=== PATIENT | male | born 1955 | race Caucasian/White ===

== ENCOUNTER → 2022-07-15 | Outpatient (CLI) | payer MEDICARE, OTHER ==
--- NOTE | 2022-07-15 14:34 | US ---
EXAMINATION TYPE: US abdomen complete DATE OF EXAM: 07/15/2022 COMPARISON: NONE CLINICAL INDICATION: Male, 67 years old with history of R10.11 RIGHT UPPER QUADRANT PAIN; epigastric pain on and off for 6 months TECHNIQUE: Multiple sonographic images of the abdomen are obtained. FINDINGS: EXAM MEASUREMENTS: Liver Length: 15.3 cm Gallbladder Wall: 0.3 cm CBD: 0.5 cm Spleen: 10.2 cm Right Kidney: 10.0 x 4.1 x 5.1 cm Left Kidney: 11.6 x 4.0 x 5.5 cm Pancreas: wnl Liver: 1.7 x 1.4 x 1.6cm septated cyst with through transmission. Diffuse increased echogenicity. Gallbladder: wnl Evidence for sonographic Parekh's sign: no CBD: wnl Spleen: wnl Right Kidney: wnl Left Kidney: wnl Upper IVC: wnl Abd Aorta: wnl IMPRESSION: 1. At least moderate hepatic steatosis. Correlate with LFTs, lipid profile, and patient risk factors. 2. A 1.7 cm mildly complex cyst of the right liver lobe. Six-month follow-up ultrasound to reassess. 3. No gallstones or biliary ductal dilatation.
== END | disposition home or self-care (01) ==
LOC: RADUSWWP 06:41
PROVIDERS: ATTEND Internal Medicine Gastroenterology
DX: K76.0 Fatty (change of) liver, not elsewhere classified (principal); K76.89 Other specified diseases of liver
CPT/HCPCS: 76700

== ENCOUNTER 2022-07-25 12:18 | Day surgery (SDC) | payer MEDICARE, OTHER ==
[~2022-07-25 12:18] MED LIST: LACTATED RINGERS 1,000 ML IV SCH
[2022-07-25] MEDS ORDERED: LACTATED RINGERS 1,000 ML IV ONE (12:39)
[2022-07-25 12:47] VITALS: RESP 16; TEMP 98
[2022-07-25] MEDS ORDERED: LIDOCAINE 2% INJ 20 MG/ML (2 ML VIAL) ONE (13:16)
[2022-07-25] MEDS ORDERED: PROPOFOL 10 MG/ML 20 ML VIAL IV ONE (13:16)
--- NOTE | 2022-07-25 13:29 | P.PCN ---
Date of Procedure: 07/25/22 Procedure(s) Performed: BRIEF HISTORY: Patient is a 67-year-old, pleasant, white female scheduled for an upper endoscopy as a part of evaluation of epigastric and right upper quadrant abdominal pain for the last 3 months duration. A pleasant 40 satiety but denies any nausea vomiting. He lost about 10 pounds since onset of the symptoms. No help with omeprazole for 2 weeks.. PROCEDURE PERFORMED: Esophagogastroduodenoscopy with biopsy. PREOPERATIVE DIAGNOSIS: Epigastric and right upper quadrant abdominal pain. IV sedation per anesthesia. PROCEDURE: After informed consent was obtained, the patient was brought into the endoscopy unit. IV sedation was administered by Anesthesia under continuous monitoring. Initially the Olympus GIF-140 video endoscope was inserted into the mouth. Esophagus intubated without any difficulty. It was gradually advanced into the stomach and duodenum and carefully examined. The bulb and the second part of the duodenum appeared normal. The scope at this time was withdrawn to the stomach, adequately insufflated with air, and upon careful examination, mucosa of the antrum, had multiple scattered erosions consistent with gastritis and biopsies were done from this area. No ulcerations noted. Because of the body, cardia and the fundus appeared normal. The scope was then withdrawn into the esophagus. The GE junction was located at 39 cm from the incisors. Small sliding type hiatal hernia noted. The esophagus appeared normal. There were no erosions or ulcerations seen, biopsies were done from the distal esophagus and the patient tolerated the procedure well. IMPRESSION: 1. Antral erosive gastritis. 2. Small hiatal hernia but no evidence of esophagitis or Hutson's esophagus.. RECOMMENDATIONS: The findings of this examination were discussed with the patient as well as his family. He was advised to avoid NSAIDs. Follow with the biopsy results. Continue with Prevacid 30 mg daily and follow antireflux measures.
[2022-07-25 13:52] VITALS: BP 147/75; PULSE 53
== END 2022-07-25 14:05 | disposition home or self-care (01) ==
LOC: ORWHC2ENDO 12:18
PROVIDERS: ATTEND Internal Medicine Gastroenterology
DX: K29.50 Unspecified chronic gastritis without bleeding (principal); K20.90 Esophagitis, unspecified without bleeding; K44.9 Diaphragmatic hernia without obstruction or gangrene; E78.5 Hyperlipidemia, unspecified; I48.91 Unspecified atrial fibrillation; J45.909 Unspecified asthma, uncomplicated; Z79.899 Other long term (current) drug therapy; Z91.030 Bee allergy status
CPT/HCPCS: 88305; 43239; J2704; J2001

== ENCOUNTER → 2023-01-20 | Outpatient (CLI) | payer MEDICARE, OTHER ==
--- NOTE | 2023-01-20 08:41 | US ---
EXAMINATION TYPE: US liver DATE OF EXAM: 01/20/2023 COMPARISON: 07/15/2022 CLINICAL INDICATION: Male, 67 years old with history of K76.89 OTHER SPECIFIED DISEASES OF LIVER; Hx Liver Cyst; New onset uncontrolled hypertension TECHNIQUE: Multiple sonographic images of the right upper quadrant are obtained. FINDINGS: EXAM MEASUREMENTS: Liver Length: 13.9 cm cyst = 1.9 x 1.5 x 1.1 cm Gallbladder Wall: 0.2 cm CBD: 0.2 cm Right Kidney: 10.4 x 4.3 x 4.8 cm Pancreas: wnl Liver: wnl Gallbladder: wnl Evidence for sonographic Parekh's sign: no CBD: wnl Right Kidney: wnl IMPRESSION: 1. No evidence for acute process. 2. Complex cyst in the liver appears fractionally larger. Consider additional short-term follow-up.
== END | disposition home or self-care (01) ==
LOC: RADUSWWP 06:53
PROVIDERS: ATTEND Internal Medicine Gastroenterology
DX: K76.89 Other specified diseases of liver (principal)
CPT/HCPCS: 76705

== ENCOUNTER → 2023-07-21 | Outpatient (CLI) | payer MEDICARE, OTHER ==
--- NOTE | 2023-07-21 08:21 | US ---
EXAMINATION TYPE: US liver DATE OF EXAM: 07/21/2023 COMPARISON: 01/20/2023 CLINICAL INDICATION: Male, 68 years old with history of K76.89 OTHER SPECIFIED DISEASES OF LIVER; fol low up liver cyst TECHNIQUE: Multiple sonographic images of the right upper quadrant are obtained. FINDINGS: EXAM MEASUREMENTS: Liver Length: 11.7 cm Gallbladder Wall: 0.2 cm CBD: 0.3 cm Right Kidney: 9.6x4.9x4.9 cm CRM COORDINATOR NOTES: Pancreas: Tail obscured by overlying bowel gas Liver: increased echogenicity, septated cystic area measures 1.8x1.2x1.2cm , no suspicious solid mas ses. Gallbladder: wnl Evidence for sonographic Parekh's sign: No CBD: wnl Right Kidney: wnl exam slightly limited by bowel IMPRESSION: 1. Hepatic cyst with thin septations unchanged from prior exam 01/20/2023 2. 2. Diverticulosis.
== END | disposition home or self-care (01) ==
LOC: RADUSWWP 06:53
PROVIDERS: ATTEND Internal Medicine Gastroenterology
DX: K76.89 Other specified diseases of liver (principal); K76.0 Fatty (change of) liver, not elsewhere classified; K57.90 Diverticulosis of intestine, part unspecified, without perforation or abscess without bleeding
CPT/HCPCS: 76705

== ENCOUNTER 2024-02-10 06:54 | Day surgery (SDC) | payer MEDICARE, OTHER ==
[2024-02-05 15:15] VITALS: BMI 28.5
[2024-02-10] MEDS: IV FLUID CONTINUATION 1,000 ML IV ONE (07:11)
[2024-02-10 07:31] VITALS: RESP 16; TEMP 97
[2024-02-10] MEDS ORDERED: PROPOFOL 10 MG/ML 20 ML VIAL IV ONE (07:31)
[2024-02-10] MEDS ORDERED: LIDOCAINE 1% INJ 10MG/ML (20 ML MDV) ONE (07:31)
[2024-02-10 07:42] LABS: HCT 47.2 % (39.0-53.0); HGB 15.6 gm/dL (13.0-17.5); MCH 29.9 pg (25.0-35.0); MCV 90.6 fL (80.0-100.0); Mean Platelet Volume 6.8; Platelet Count 274 k/uL (150-450); RBC 5.22 m/uL (4.30-5.90); RDW 12.4 % (11.5-15.5); WBC 6.6 k/uL (3.8-10.6)
--- NOTE | 2024-02-10 08:00 | P.PCN ---
Date of Procedure: 02/10/24 Procedure(s) Performed: Brief history: Patient is a pleasant 68-year-old white female scheduled for an elective upper endoscopy as well as colonoscopy as a part of evaluation of GERD and screening for colon cancer/positive: Procedure performed: Esophagogastroduodenoscopy with biopsy Colonoscopy with piecemeal snare polypectomy and Endo Clip placement Preoperative diagnosis: GERD Screening for colon cancer/positive Cologuard Anesthesia: MAC Procedure: After informed consent was obtained from the patient was brought into the endoscopy unit and IV sedation was administered by anesthesia under continuous monitoring. Initially upper endoscopy was done. The Olympus GF 160 video endoscope was inserted inserted into the mouth and esophagus intubated without any difficulty and was gradually advanced into the stomach and duodenum and carefully examined. The bulb and second part of the duodenum appeared normal. The scope was then withdrawn into the stomach adequately insufflated with air and upon careful examination the antrum and mild antral gastritis and biopsies were done from this area. Mucosa body, cardia and fundus appeared normal. The scope was then withdrawn into the esophagus. Small sliding-type hiatal hernia noted the GE junction was located at 40 cm to the incisors. It appeared regular with no erythema erosions or ulcerations. Rest of the esophagus appeared normal. Patient tolerated the procedure well. At this time the patient continued to remain sedation. Initial digital rectal examination was normal. Olympus CF 160 video colonoscope was then inserted into the rectum and gradually advanced to the cecum without any difficulty. Careful examination was performed as the scope was gradually being withdrawn. The prep was excellent. The cecum, a 3 cm flat polyp that was removed by piecemeal snare polypectomy followed by 2 Endo Clip placement. Almost complete polypectomy accomplished. Rest of the ascending colon, appeared normal. The transverse colon there was a 6 mm polyp removed by cold snare polypectomy. Rest of the transverse colon, descending colon, sigmoid colon and rectum appeared normal. Sigmoid diverticulosis. Retroflexion was performed in the rectum and no lesions were noted. Patient tolerated the procedure well. Impression: 1. Upper endoscopy revealed antral erosive gastritis and small hiatal hernia 2. Colonoscopy revealed: a) 3 cm flat cecal polyp status post piecemeal snare polypectomy followed by Endo Clip placement b) 6 mm transverse colon polyp status post snare polypectomy c) moderate sigmoid diverticulosis Recommendations: Findings of this examination were discussed with the patient as well as his family. He was advised to follow-up with the biopsy results. He will be seen in the office in in 2 weeks. Based on the biopsy results we will plan a repeat colonoscopy in 6 months to ensure complete polypectomy.
[2024-02-10 08:25] VITALS: BP 123/88; PULSE 58
== END 2024-02-10 08:42 | disposition home or self-care (01) ==
LOC: ORWHC2ENDO 06:54
PROVIDERS: ATTEND Internal Medicine Gastroenterology
DX: D12.0 Benign neoplasm of cecum (principal); D12.3 Benign neoplasm of transverse colon; K29.50 Unspecified chronic gastritis without bleeding; K44.9 Diaphragmatic hernia without obstruction or gangrene; K57.30 Diverticulosis of large intestine without perforation or abscess without bleeding; K21.9 Gastro-esophageal reflux disease without esophagitis; I10 Essential (primary) hypertension; E78.5 Hyperlipidemia, unspecified; Z79.899 Other long term (current) drug therapy; Z91.030 Bee allergy status
CPT/HCPCS: 85027; 45385; 43239; J2003; J2704; 88305

== ENCOUNTER → 2024-07-06 | Outpatient (CLI) | payer MEDICARE, OTHER ==
[2024-07-06 10:26] LABS: Basophils # (A) 0.05 X 10*3/uL (0.00-0.10); Basophils % (A) 0.7 %; Eosinophils # (A) 0.11 X 10*3/uL (0.04-0.35); Eosinophils % (A) 1.5 %; HCT 46.1 % (39.6-50.0); HGB 15.1 g/dL (13.0-17.0); Lymphocytes # (A) 2.97 X 10*3/uL (0.90-5.00); Lymphocytes % (A) 41.8 %; MCH 29.4 pg (27.0-32.0); MCHC 32.8 g/dL (32.0-37.0); MCV 89.9 FL (80.0-97.0); Mean Platelet Volume 9.5 FL (9.5-12.2); Monocytes # (A) 0.61 X 10*3/uL (0.20-1.00); Monocytes % (A) 8.6 %; NRBC Per 100 WBC 0 X 10*3/uL (0.00-0.01); Neutrophils # (A) 3.35 X 10*3/uL (1.80-7.70); Neutrophils % (A) 47.1 %; Platelet Count 277 X 10*3/uL (140-440); RBC 5.13 X 10*6/uL (4.40-5.60); RDW 13.2 % (11.5-14.5); WBC 7.11 X 10*3/uL (4.50-10.00)
[2024-07-06 10:46] LABS: ALT 19 U/L (10-49); AST 14 U/L (14-35); Albumin 4.1 g/dL (3.8-4.9); Albumin/Globulin Ratio 1.64 Ratio (1.60-3.17); Alkaline Phosphatase 67 U/L (41-126); BUN/Creat Ratio 17.78 Ratio (12.00-20.00); Calcium 8.9 mg/dL (8.7-10.3); Carbon Dioxide 23.4 mmol/L (21.6-31.8); Chloride 104 mmol/L (96-109); Chol/HDL Ratio 4.55 Ratio; Globulin 2.5 g/dL (1.6-3.3); Glucose 104 mg/dL (70-110); LDL Cholesterol,Calculated 152.3 mg/dL (0.0-131.0); Potassium 4.8 mmol/L (3.5-5.5); Prostate Specific Antigen 1.04 ng/mL (0.000-4.500); Sodium 138 mmol/L (135-145); Total Bilirubin 0.4 mg/dL (0.3-1.2); Total Protein 6.6 g/dL (6.2-8.2); VLDL Calculation 19.38 mg/dL (5.00-40.00)
== END | disposition home or self-care (01) ==
LOC: LABWHC1 07:19
PROVIDERS: ATTEND Internal Medicine
DX: I10 Essential (primary) hypertension (principal); N40.0 Benign prostatic hyperplasia without lower urinary tract symptoms
CPT/HCPCS: 36415; 80053; 80061; 83735; 84153; 84443; 85025

== ENCOUNTER → 2024-08-23 | Outpatient (CLI) | payer MEDICARE, OTHER ==
--- NOTE | 2024-08-23 11:50 | US ---
EXAMINATION TYPE: US carotid duplex BILAT DATE OF EXAM: 08/23/2024 COMPARISON: NONE CLINICAL INDICATION: Male, 69 years old with history of SCREENING Z13.6,I65.23OCCLUSION AND STENOSIS OF BI; stenosis. Dizziness and weakness. TECHNIQUE: Grayscale, color Doppler and spectral Doppler evaluation of the bilateral carotid systems and vertebral arteries. Indirect Doppler criteria was utilized. FINDINGS: EXAM MEASUREMENTS: RIGHT: Peak Systolic Velocity (PSV) cm/sec ----- Right CCA: 108 ----- Right ICA: 111 ----- Right ECA: 157 ICA/CCA ratio: 1.0 RIGHT: End Diastole cm/sec ----- Right CCA: 20.8 ----- Right ICA: 26 ----- Right ECA: 12.2 LEFT: Peak Systolic Velocity (PSV) cm/sec ----- Left CCA: 105 ----- Left ICA: 114 ----- Left ECA: 132 ICA/CCA ratio: 1.1 LEFT: End Diastole cm/sec ----- Left CCA: 19 ----- Left ICA: 35.2 ----- Left ECA: 12.5 VERTEBRALS (direction of flow): Right Vertebral: Antegrade Left Vertebral: Antegrade Rhythm: Normal ENAMEL SPRAYER NOTES: No significant stenosis seen Color Doppler imaging shows patency with blood flow throughout the carotid artery. Spectral waveforms are within normal limits. IMPRESSION: No hemodynamically significant internal carotid artery stenosis on either side. Criteria for Assigning % of Stenosis / Diameter reduction (Estimation based on the indirect measurements of the internal carotid artery velocities (ICA PSV). 1. Normal (no stenosis)=ICA PSV < 180 cm/s: ratio < 2.0: ICA EDV<40 cm/s. 2. Less than 50% stenosis=ICA PSV < 180 cm/s: ratio < 2.0: ICA EDV<40 cm/s. 3. 50 to 69% stenosis=ICA PSV of 180 to 230 cm/s: ration 2.0 ? 4.0: ICA EDV 40-100 cm/s. PSV 125-180 cm/sec and ICA/CCA PSV Ratio ? 2.0 is also consistent with 50-69% stenosis 4. Greater than 70% stenosis to near occlusion= ICA PSV > 230 cm/s: ratio > 4.0: ICA EDV > 100 cm/s. 5. Near occlusion= ICA PSV velocities may be low or undetectable: variable ratio and ICA EDV. 6. Total occlusion=unable to detect flow. [facility], , 08/23/2024 11:47 AM
--- NOTE | 2024-08-23 11:51 | US ---
EXAMINATION TYPE: US Aorta Screening DATE OF EXAM: 08/23/2024 COMPARISON: NONE CLINICAL INDICATION: Male, 69 years old with history of SCREENING Z13.6,I65.23OCCLUSION AND STENOSIS OF BI; screening TECHNIQUE: Multiple sonographic images of the abdominal aorta are obtained with grayscale and color D oppler imaging. FINDINGS: EXAM MEASUREMENTS: Abdominal Aorta: Proximal: 1.7 x 2.1 cm Mid: 1.8 x 1.3 cm Distal: 1.4 x .9 cm Bifurcation: Right Iliac: .8 x .6 cm Left Iliac: .7 x .8 cm IMPRESSION: No evidence for aortic aneurysm. No further workup recommended for negative screening aortic aneurysm ultrasound per [employer] [facility], , 08/23/2024 11:48 AM
== END | disposition home or self-care (01) ==
LOC: RADUSWWP 10:24
PROVIDERS: ATTEND Internal Medicine
DX: Z13.6 Encounter for screening for cardiovascular disorders (principal); I65.23 Occlusion and stenosis of bilateral carotid arteries
CPT/HCPCS: 76706; 93880

== ENCOUNTER 2024-08-24 07:53 | Day surgery (SDC) | payer MEDICARE, OTHER ==
[2024-08-24 08:06] VITALS: TEMP 97
[2024-08-24] MEDS: IV FLUID CONTINUATION 1,000 ML IV ONE (08:07)
[2024-08-24] MEDS: LACTATED RINGERS 1,000 ML IV SCH (08:13)
[2024-08-24] MEDS ORDERED: PROPOFOL 10 MG/ML 20 ML VIAL IV ONE (09:05)
[2024-08-24] MEDS ORDERED: LIDOCAINE 1% INJ 10MG/ML (20 ML MDV) ONE (09:05)
--- NOTE | 2024-08-24 09:27 | P.PCN ---
Date of Procedure: 08/24/24 Procedure(s) Performed: BRIEF HISTORY: Patient is a 60-year-old pleasant white male scheduled for an elective colonoscopy as a part of follow-up of large cecal polyp that was noted on routine screening colonoscopy in January 2024. He was noted to have a 3 cm broad-based polyp in the cecum removed by piecemeal snare polypectomy and biopsies revealed serrated adenoma. He is scheduled for follow-up colonoscopy in 6 months. PROCEDURE PERFORMED: Colonoscopy with snare polypectomy. PREOPERATIVE DIAGNOSIS: Follow-up large cecal polyp noted 6 months. IV sedation per Anesthesia. PROCEDURE: After informed consent was obtained, the patient, was brought into the endoscopy unit. IV sedation was administered by Anesthesia under continuous monitoring. Digital rectal examination was normal. Initially the Olympus CF-160 flexible video colonoscope was then inserted in the rectum, gradually advanced into the cecum without any difficulty. Careful examination was performed as the scope was gradually being withdrawn. Ileocecal valve and the appendiceal orifice were visualized and appeared normal. Prep was excellent. Mucosa of the cecum, had a 1 cm residual cecal polyp that was removed by snare polypectomy. Rest of the ascending colon, transverse colon, descending colon, sigmoid colon, and rectum appeared normal. Retroflexion was performed in the rectum and no lesions were seen. The patient tolerated the procedure well. IMPRESSION: 1 cm with severe cecal polyp status post snare polypectomy Scattered sigmoid diverticulosis RECOMMENDATIONS: Findings of this examination were discussed with the patient as well as his family. He was advised to follow the biopsy results. Recommend a repeat colonoscopy in 3 years.
[2024-08-24 09:52] VITALS: BP 144/84; PULSE 61; RESP 18
== END 2024-08-24 10:11 | disposition home or self-care (01) ==
LOC: ORWHC2ENDO 07:53
PROVIDERS: ATTEND Internal Medicine Gastroenterology
DX: D12.0 Benign neoplasm of cecum (principal); K57.30 Diverticulosis of large intestine without perforation or abscess without bleeding; I48.91 Unspecified atrial fibrillation; I10 Essential (primary) hypertension; E78.5 Hyperlipidemia, unspecified; N40.0 Benign prostatic hyperplasia without lower urinary tract symptoms; M54.50 Low back pain, unspecified; Z79.899 Other long term (current) drug therapy
CPT/HCPCS: 88305; 45385; J2003; J2704